=== PATIENT | male | born 1950 | race Caucasian/White ===

== ENCOUNTER 2024-10-18 03:34 | Emergency (ER) | payer MEDICARE, MEDICAID ==
[2024-10-18] MEDS ORDERED: NIFE90TA60 PO (19:18)
[2024-10-19] MEDS ORDERED: CARV25TA47 PO (13:19)
[2024-10-19] MEDS ORDERED: MINO10TA2 PO (13:19)
== END 2024-10-18 04:40 | disposition home or self-care (01) ==
LOC: ER 03:34
DX: R07.89 Other chest pain (principal); E78.00 Pure hypercholesterolemia, unspecified; I10 Essential (primary) hypertension; Z53.21 Procedure and treatment not carried out due to patient leaving prior to being seen by health care provider